=== PATIENT | female | born 1955 | race Caucasian/White ===

== ENCOUNTER 2018-07-18 10:07 | Outpatient (CLI) | payer BC ==
--- NOTE | 2018-07-18 12:10 | ULT ---
THYROID ULTRASOUND: 07/18/2018 HISTORY: Thyroid (cystic) nodule, not otherwise specified. COMPARISON: None. TECHNIQUE: Multiplanar alarcon-scale sonographic imaging of the thyroid gland obtained. FINDINGS: The thyroid isthmus measures 2 mm in AP dimension. The right lobe measures 3.8 x 1.5 x 1.0 cm, and t he left lobe measures 3.2 x 1 x 0.9 cm. There is a homogeneous oval, hypoechoic, solid appearing nodule within the lateral aspect of the mid right lobe, measuring 1.3 x 1.1 x 0.6 cm. Two subcentimeter nodules are noted within the mid portion of the left lobe, measuring 3 x 2 x 2 mm a nd 5 x 2 x 5 mm, respectively. IMPRESSION: Thyroid nodules as detailed above, with the largest nodule located on the right. Based on TI-RADS, t his is a TR4 lesion. Based on its size, followup in six months advised. POS: [facility]
== END 2018-07-18 10:08 | disposition home or self-care (01) ==
LOC: BICULT 10:07
PROVIDERS: ATTEND Otolaryngology Otolaryngic Allergy
DX: E04.2 Nontoxic multinodular goiter (principal)
CPT/HCPCS: 76536; 77063; 77067

== ENCOUNTER 2019-07-29 10:16 | Outpatient (CLI) | payer BC ==
--- NOTE | 2019-07-29 13:06 | ULT ---
THYROID ULTRASOUND: HISTORY: Thyroid nodule. TECHNIQUE: Real-time imaging of the right and left lobes of the gland was performed. FINDINGS: The right lobe measures 0.8 x 1.6 x 3.7 cm and the left lobe 1.2 x 1.2 x 3.1 cm. Within the left lob e, near the isthmus, is a tiny complex cyst, measuring in the 3 mm range. Within the lower pole of th e right lobe of the gland is a hypoechoic nodule that shows some increased vascularity. It measures 1 .4 cm in maximum length. In reviewing a previous ultrasound examination of 07/18/2018, this is a stab le nodule. IMPRESSION: Stable appearance to the TI-RADS 4 nodule involving the lower pole of the right lobe of the gland. An additional one year followup to assess for stability would be suggested. POS: [facility]
== END 2019-07-29 10:17 | disposition home or self-care (01) ==
LOC: BICULT 10:16
PROVIDERS: ATTEND Otolaryngology Otolaryngic Allergy
DX: E04.1 Nontoxic single thyroid nodule (principal)
CPT/HCPCS: 76536